=== PATIENT | female | born 1975 ===

== ENCOUNTER 2021-12-28 08:05 | Outpatient (CLI) | payer OTHER ==
--- NOTE | 2021-12-28 13:03 | Ultrasound Report ---
ULTRASOUND PELVIS INDICATION / CLINICAL INFORMATION: TO EVALUTE PAIN,CLINICAL SYMPTOMS, DOCUM. BY PROVIDER, HX FIBROID. TECHNIQUE: Transabdominal. Duplex Color Doppler used: Yes. COMPARISON: None available FINDINGS: UTERUS: - Appearance: Retroflexed. - Size (cm): 8.8 x 4.7 x 4.4 cm. - Endometrial Complex (if present): No significant abnormality.. Thickness in cm (if measured) = 0.8 cm. - Mass or cyst: Solid nodule visualized in the lower uterine segment measuring 2.2 x 1.6 x 1.8 cm. - Additional findings: None. RIGHT ADNEXA: The right ovary measures 3.0 x 2.4 x 2.2 cm. No significant ovarian cyst or mass. Norm al color Doppler blood flow. LEFT ADNEXA: The left ovary measures 3.4 x 2.5 x 1.9 cm. No significant ovarian cyst or mass. Normal color Doppler blood flow. URINARY BLADDER: No significant abnormality. FREE FLUID: None. ADDITIONAL FINDINGS: None. IMPRESSION: 1. Features most consistent with an intramural fibroid visualized in the lower uterine segment measur ing 2.2 cm. 2. Otherwise, no significant abnormality. Scribed by: Darleen Beckwith RDMS, TENISHA, CAYETANO Scribed: 12/28/2021 9:45 AM I have reviewed the images, agree with this report, and edited this report as needed. Signer Name: Shanelle Russell MD Signed: 12/28/2021 12:59 PM Workstation Name: [id number]
== END 2021-12-28 08:06 | disposition home or self-care (01) ==
LOC: US 08:05
PROVIDERS: ATTEND Specialist
DX: N85.8 Other specified noninflammatory disorders of uterus (principal)
CPT/HCPCS: 76856